=== PATIENT | female | born 1950 | race Caucasian/White ===

== ENCOUNTER 2020-12-18 17:27 | Emergency (ER) | payer MEDICARE, OTHER, SELFPAY ==
--- NOTE | ~2020-12-18 | XR_ITS ---
XR ankle LT min 3V, XR foot LT min 3V 12/18/2020 18:19 Indication: Left foot pain after injury Procedure: 4 views left ankle and 4 views left foot Comparison: No prior studies for comparison. Findings: There is a nondisplaced fracture proximal aspect of the fifth metatarsal. No other fracture or traumatic malalignment is identified. There is mild osteoarthritis of the first MTP joint. No sig nificant soft tissue abnormality. Lisfranc joint intact. No foreign bodies. Impression: 1: Nondisplaced transverse fracture proximal aspect of the left fifth metatarsal. Reviewed, dictated and finalized at location A. Impression: 1: Nondisplaced transverse fracture proximal aspect of the left fifth metatarsa l. Impression: 1: Nondisplaced transverse fracture proximal aspect of the left fifth metatarsa l.
[2020-12-18 17:53] VITALS: BP 118/53; PULSE 92; RESP 18; TEMP 36.7; O2SAT 96
--- NOTE | 2020-12-18 18:02 | ED.LOWEXIN ---
HPI - Extremity Injury (Lower) General Chief Complaint: Extremity Injury, Lower Stated Complaint: left foot injury/ sp fall Time Seen by Provider: 12/18/20 17:49 Source: patient Mode of arrival: ambulatory Limitations: no limitations History of Present Illness HPI Narrative: Patient is a 70-year-old female complaining of left foot pain after she fell and twisted her left ankle today. Patient states her pain is mild, dull, aching. Patient denies any head, neck, back or any other extremity pain/injury. Related Data Home Medications Medication Instructions Recorded Confirmed atorvastatin 12/18/20 darifenacin mg PO 12/18/20 furosemide 12/18/20 gabapentin 12/18/20 glimepiride mg 12/18/20 insulin degludec [Tresiba unit SUBCUT 12/18/20 FlexTouch U-200] metformin mg 12/18/20 trazodone 12/18/20 12/18/20 venlafaxine mg PO 12/18/20 Allergies Allergy/AdvReac Type Severity Reaction Status Date / Time Sulfa (Sulfonamide Allergy Mild Hives Verified 12/18/20 18:06 Antibiotics) dapagliflozin [From Farga] Allergy Unknown Verified 12/18/20 18:07 Review of Systems Review of Systems: All systems reviewed & are unremarkable except as noted in HPI and below Exam Const: General: cooperative, healthy appearing, comfortable, no acute distress, well developed, alert and awake; No confusion Orientation/consciousness: oriented to person, oriented to place, oriented to time, patient oriented x3 and No confusion Limitations: no limitations HENMT: Head: normal to inspection, normocephalic and atraumatic Ears: hearing grossly normal bilaterally, TM normal on the right and TM normal on the left General nose exam: Normal external nose present, Normal nares present and No nasal discharge present Face and sinus: normal facial exam Mouth: Yes Normal oral and palatal mucosa present, Yes lip normal, Yes tongue normal and Yes oropharynx normal Throat: posterior oropharynx normal, tonsils normal and uvula midline Eyes: General: appearance normal, both eyes and all related structures Pupils: Equal, round and reactive pupils present EOM: EOMs intact bilaterally Neck: Neck: normal visual inspection, full ROM, no lymphadenopathy and no meningeal signs Chest: Chest palpation & inspection: normal inspection of the chest Resp: Effort & Inspection: normal respiratory effort, able to speak in complete sentences, no respiratory distress and not tachypneic Auscultation: clear to auscultation bilaterally, no crackles, no rales, no rhonchi and no wheezes Cardio: Rate: regular rate Rhythm: regular rhythm GI: Inspection: normal to inspection GI Palp: No abdominal tenderness, Yes Soft to palpation, No Tenderness to palpation present (GI), No Guarding due to palpation present (GI), No Rigid due to palpation and No Rebound tenderness present Auscultation: normal bowel sounds : General: Yes no CVA tenderness Back/Spine/Pelvis: Back: no CVA tenderness Skin: General skin exam: normal color, no rashes or lesions noted, elasticity normal and turgor normal Neuro: General: oriented to person, oriented to place, oriented to time, patient oriented x3, tone normal, moves all extremities, Normal light touch and pain sensation, no meningeal signs, no focal motor deficits, CN's II-XI intact bilaterally and No confusion Cranial nerves: Yes Equal, round and reactive pupils present Speech: No Abnormal speech present Sensory Exam: No Sensory deficit (Neuro) Extrem: General: capillary refill normal Other: Negative for any deformity or significant swelling. Pain on palpation of the left lateral foot. No pain on palpation of the ankle. Neurovascular is intact bilateral lower extremities. Psych: Appearance: grossly normal and well kempt Mental Status: mental status grossly normal Speech and movement: Normal speech and movement present Affect: normal affect Attitude: cooperative Thought process: Normal thought process present Thought content: Yes Nor
[2020-12-18] MEDS: TETANUS,DIPHTHERIA,AC PERTUSSIS ADULT (0.5 ML) BOOSTRIX IM (19:15)
[2020-12-18] MEDS: HYDROcodone/acetaminophen (*CRX) 5-325 MG TABLET 1 TAB PO (19:15)
[2020-12-18 19:46] VITALS: BP 124/62; PULSE 84; RESP 17; TEMP 36.7; O2SAT 98
== END 2020-12-18 19:49 | disposition home or self-care (01) ==
PROVIDERS: Emergency Provider Emergency Medicine; PCP Internal Medicine
DX: S92.355A Nondisplaced fracture of fifth metatarsal bone, left foot, initial encounter for closed fracture (principal); Z23 Encounter for immunization; W19.XXXA Unspecified fall, initial encounter; X50.9XXA Other and unspecified overexertion or strenuous movements or postures, initial encounter
CPT/HCPCS: 73610; 73630; 90471; 90715; 99284; A9270